=== PATIENT | female | born 1985 | race Caucasian/White ===

== ENCOUNTER 2017-06-23 22:02 | Emergency (ER) | payer SELFPAY ==
[~2017-06-23] VITALS: Ht 180.3 cm; Wt 80.0 kg
[2017-06-24] MEDS ORDERED: ONDANSETRON 4MG ODT PO ONE (00:15)
[2017-06-24] MEDS ORDERED: MORPHINE SULFATE 10 MG/ML CPJ IM ONE (00:15)
[2017-06-24 01:13] VITALS: BP 137/82
== END 2017-06-24 01:24 | disposition home or self-care (01) ==
LOC: ER 06-24 00:13
DX: K02.9 Dental caries, unspecified (principal); R68.84 Jaw pain; E66.9 Obesity, unspecified; Z68.24 Body mass index [BMI] 24.0-24.9, adult
CPT/HCPCS: 81025; 96372; 99283; J2270; Q0162; Z7610